=== PATIENT | male | born 1990 | race African-American/Black ===

== ENCOUNTER 2022-02-07 16:56 | Emergency (ER) | payer SELFPAY ==
[~2022-02-07] VITALS: Ht 170.2 cm; Wt 70.3 kg
[2022-02-07 17:00] VITALS: BP 129/89
== END 2022-02-07 18:19 | disposition left against medical advice (07) ==
LOC: ER 16:56
DX: Z53.21 Procedure and treatment not carried out due to patient leaving prior to being seen by health care provider (principal)